=== PATIENT | female | born 1990 | race Caucasian/White ===

== ENCOUNTER 2017-08-28 17:16 | Emergency (ER) | payer SELFPAY ==
[~2017-08-28] VITALS: Ht 157.5 cm; Wt 86.0 kg
[2017-08-28 17:29] VITALS: Ht 157.5 cm; Wt 86.0 kg
[2017-08-28] MEDS ORDERED: KETOROLAC 30 MG INJ IM STA (18:55)
[2017-08-28] MEDS ORDERED: ONDANSETRON (ODT) 4 MG TAB ODT STA (18:55)
[2017-08-28] MEDS ORDERED: HYDROCODONE/APAP (5/325) TAB PO ONE (19:00)
[2017-08-28] MEDS ORDERED: CYCL-319 PO (19:13)
[2017-08-28] MEDS ORDERED: NAPR-260 PO (19:13)
[2017-08-28] MEDS ORDERED: HYDR-906 PO (19:13)
[2017-08-28 20:00] VITALS: BP 121/74; PULSE 87; RESP 18; TEMP 98.8
--- NOTE | 2017-09-02 16:52 | ERD ---
ER Documentation Chief Complaint Chief Complaint LEFT BUTTOCK PAIN STARTING LAST NIGHT HPI Patient is a 27-year-old female presenting to the emergency department with complaints of intermittent, severe, worsening, worse with ambulation left buttock pain which began last night. 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 The pain started after she was sitting for long period of time. She states the pain radiates down her left leg. She denies loss of bowel or bladder function, fevers, chills, inability to ambulate , and other symptoms at this time. ROS All systems reviewed and are negative except as per history of present illness. Medications Home Meds Active Scripts Cyclobenzaprine Hcl* (Cyclobenzaprine Hcl*) 10 Mg Tablet, 10 MG PO TID, #15 TAB Prov:AMY SIM PA-C 08/28/17 Naproxen* (Naprosyn*) 500 Mg Tablet, 500 MG PO BID Y for PAIN AND/OR INFLAMMATION, #30 TAB Prov:AMY SIM PA-C 08/28/17 Hydrocodone/Acetaminophen (Fleming 5-325 Tablet) 1 Each Tablet, 1 TAB PO Q6H Y for PAIN, #10 TAB Prov:AMY SIM PA-C 08/28/17 Allergies Allergies: Coded Allergies: No Known Allergy (Unverified , 08/28/17) PMhx/Soc Medical and Surgical Hx: pt denies Medical Hx, pt denies Surgical Hx Hx Alcohol Use: No Hx Substance Use: No Hx Tobacco Use: No Smoking Status: Never smoker Physical Exam Physical Exam Const: Nontoxic, well-appearing female in no acute distress. Head: Atraumatic Eyes: Normal Conjunctiva ENT: Normal External Ears, Nose and Mouth. Neck: Full range of motion..~ No meningismus. Musculoskeletal: There is tenderness to palpation of the left mid buttock. Back: No midline or flank tenderness and no paraspinal tenderness palpation. Ext: No cyanosis, or edema Neur: Awake and alert Psych: Normal Mood and Affect Results 24 hrs Current Medications Medications (Trade) Dose Ordered Sig/Adam Route PRN Reason Start Time Stop Time Status Last Admin Dose Admin Ketorolac Tromethamine (Toradol) 30 mg ONCE STAT IM 08/28/17 18:55 08/28/17 18:56 DC 10/24/17 19:27 Ondansetron HCl (Zofran Odt) 4 mg ONCE STAT ODT 08/28/17 18:55 08/28/17 18:56 DC 08/28/17 19:27 Acetaminophen/ Hydrocodone Bitart (Fleming (5/325)) 1 tab ONCE ONCE PO 08/28/17 19:00 08/28/17 19:01 DC 08/28/17 19:28 Procedures/MDM 27-year-old female presenting to the emergency department with complaints of left buttock pain. Physical examination is consistent with musculoskeletal pain. 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 Low suspicion for life- threatening pathology. Patient was treated in the department with medication she is feeling improved and she was stable for discharge home for outpatient management and close follow-up with her primary care physician. She is to return immediately for any new or worsening symptoms. Departure Diagnosis: Primary Impression: Acute buttock pain Condition: Fair Patient Instructions: Possible Causes of Low Back or Leg Pain [facility] Usted se layne hecho un examen mdico de control que le indica que no est en dominic condicin que requiera tratamiento urgente en el Departamento de Emergencia. Un estudio ms profundo y el tratamiento de morfin condicin pueden esperar sin ningn riesgo hasta que usted sea atendida/o en el consultorio de morfin mdico o dominic cl rani. Es responsabilidad suya arreglar dominic raissa para el seguimiento del mel. MANEJO DE CONDICIONES NO URGENTES EN EL FUTURO 1) Si usted tiene un mdico de atencin primaria: Usted debera llamar a morfin mdico de atencin primaria antes de venir al departamento de emergencia. Despus de las horas de consultorio, morfin doctor o morfin asociado/a est disponible por telfono. El mdico o enfermero de [employer] en el servicio telefnico puede asesorarle por tristen medio para atender el problema, o mel contrario se puede programar dominic raissa. 2) Si usted no tiene un mdico de atencin primaria: Llame al mdico o clnica de referencia que aparece abajo jeanie las horas de consultorio para hacer dominic raissa para que le vean. CLINICAS: [facility] [phone] [facility] [phone] [facility] [phone] [place] [phone] [address] [place] [phone] [facility] [phone] [address] Additional Instructions: No mas mejor en 2-3 banks, regresar. Mas peor en 24 horas, regresear rapidamente. Ir a doctor primario en 1-2 banks. Usar instrucciones cuando helder medicamento. AMY SIM PA-C Sep 02, 2017 16:52
--- NOTE | 2017-09-02 16:52 | ERD ---
ER Documentation Chief Complaint Chief Complaint LEFT BUTTOCK PAIN STARTING LAST NIGHT HPI Patient is a 27-year-old female presenting to the emergency department with complaints of intermittent, severe, worsening, worse with ambulation left buttock pain which began last night. 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 The pain started after she was sitting for long period of time. She states the pain radiates down her left leg. She denies loss of bowel or bladder function, fevers, chills, inability to ambulate , and other symptoms at this time. ROS All systems reviewed and are negative except as per history of present illness. Medications Home Meds Active Scripts Cyclobenzaprine Hcl* (Cyclobenzaprine Hcl*) 10 Mg Tablet, 10 MG PO TID, #15 TAB Prov:AMY SIM PA-C 08/28/17 Naproxen* (Naprosyn*) 500 Mg Tablet, 500 MG PO BID Y for PAIN AND/OR INFLAMMATION, #30 TAB Prov:AMY SIM PA-C 08/28/17 Hydrocodone/Acetaminophen (Morgan 5-325 Tablet) 1 Each Tablet, 1 TAB PO Q6H Y for PAIN, #10 TAB Prov:AMY SIM PA-C 08/28/17 Allergies Allergies: Coded Allergies: No Known Allergy (Unverified , 08/28/17) PMhx/Soc Medical and Surgical Hx: pt denies Medical Hx, pt denies Surgical Hx Hx Alcohol Use: No Hx Substance Use: No Hx Tobacco Use: No Smoking Status: Never smoker Physical Exam Physical Exam Const: Nontoxic, well-appearing female in no acute distress. Head: Atraumatic Eyes: Normal Conjunctiva ENT: Normal External Ears, Nose and Mouth. Neck: Full range of motion..~ No meningismus. Musculoskeletal: There is tenderness to palpation of the left mid buttock. Back: No midline or flank tenderness and no paraspinal tenderness palpation. Ext: No cyanosis, or edema Neur: Awake and alert Psych: Normal Mood and Affect Results 24 hrs Current Medications Medications (Trade) Dose Ordered Sig/Adam Route PRN Reason Start Time Stop Time Status Last Admin Dose Admin Ketorolac Tromethamine (Toradol) 30 mg ONCE STAT IM 08/28/17 18:55 08/28/17 18:56 DC 10/24/17 19:27 Ondansetron HCl (Zofran Odt) 4 mg ONCE STAT ODT 08/28/17 18:55 08/28/17 18:56 DC 08/28/17 19:27 Acetaminophen/ Hydrocodone Bitart (Morgan (5/325)) 1 tab ONCE ONCE PO 08/28/17 19:00 08/28/17 19:01 DC 08/28/17 19:28 Procedures/MDM 27-year-old female presenting to the emergency department with complaints of left buttock pain. Physical examination is consistent with musculoskeletal pain. 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 Low suspicion for life- threatening pathology. Patient was treated in the department with medication she is feeling improved and she was stable for discharge home for outpatient management and close follow-up with her primary care physician. She is to return immediately for any new or worsening symptoms. Departure Diagnosis: Primary Impression: Acute buttock pain Condition: Fair Patient Instructions: Possible Causes of Low Back or Leg Pain Referrals: [facility] Usted se layne hecho un examen mdico de control que le indica que no est en dominic condicin que requiera tratamiento urgente en el Departamento de Emergencia. Un estudio ms profundo y el tratamiento de morfin condicin pueden esperar sin ningn riesgo hasta que usted sea atendida/o en el consultorio de morfin mdico o dominic cl rani. Es responsabilidad suya arreglar dominic raissa para el seguimiento del mel. MANEJO DE CONDICIONES NO URGENTES EN EL FUTURO 1) Si usted tiene un mdico de atencin primaria: Usted debera llamar a morfin mdico de atencin primaria antes de venir al departamento de emergencia. Despus de las horas de consultorio, morfin doctor o morfin asociado/a est disponible por telfono. El mdico o enfermero de [employer] en el servicio telefnico puede asesorarle por tristen medio para atender el problema, o mel contrario se puede programar dominic raissa. 2) Si usted no tiene un mdico de atencin primaria: Llame al mdico o clnica de referencia que aparece abajo jeanie las horas de consultorio para hacer dominic raissa para que le vean. CLINICAS: [facility] [phone] [facility] [phone] [facility] [phone] [place] [address] [phone] [facility] [facility] [address] [place] [address] [phone] [facility] [phone] [address] Additional Instructions: No mas mejor en 2-3 banks, regresar. Mas peor en 24 horas, regresear rapidamente. Ir a doctor primario en 1-2 banks. Usar instrucciones cuando helder medicamento. AMY SIM PA-C Sep 02, 2017 16:52
--- NOTE | 2017-09-02 16:52 | ERD ---
ER Documentation Chief Complaint Chief Complaint LEFT BUTTOCK PAIN STARTING LAST NIGHT HPI Patient is a 27-year-old female presenting to the emergency department with complaints of intermittent, severe, worsening, worse with ambulation left buttock pain which began last night. 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 The pain started after she was sitting for long period of time. She states the pain radiates down her left leg. She denies loss of bowel or bladder function, fevers, chills, inability to ambulate , and other symptoms at this time. ROS All systems reviewed and are negative except as per history of present illness. Medications Home Meds Active Scripts Cyclobenzaprine Hcl* (Cyclobenzaprine Hcl*) 10 Mg Tablet, 10 MG PO TID, #15 TAB Prov:AMY SIM PA-C 08/28/17 Naproxen* (Naprosyn*) 500 Mg Tablet, 500 MG PO BID Y for PAIN AND/OR INFLAMMATION, #30 TAB Prov:AMY SIM PA-C 08/28/17 Hydrocodone/Acetaminophen (Muir 5-325 Tablet) 1 Each Tablet, 1 TAB PO Q6H Y for PAIN, #10 TAB Prov:AMY SIM PA-C 08/28/17 Allergies Allergies: Coded Allergies: No Known Allergy (Unverified , 08/28/17) PMhx/Soc Medical and Surgical Hx: pt denies Medical Hx, pt denies Surgical Hx Hx Alcohol Use: No Hx Substance Use: No Hx Tobacco Use: No Smoking Status: Never smoker Physical Exam Physical Exam Const: Nontoxic, well-appearing female in no acute distress. Head: Atraumatic Eyes: Normal Conjunctiva ENT: Normal External Ears, Nose and Mouth. Neck: Full range of motion..~ No meningismus. Musculoskeletal: There is tenderness to palpation of the left mid buttock. Back: No midline or flank tenderness and no paraspinal tenderness palpation. Ext: No cyanosis, or edema Neur: Awake and alert Psych: Normal Mood and Affect Results 24 hrs Current Medications Medications (Trade) Dose Ordered Sig/Adam Route PRN Reason Start Time Stop Time Status Last Admin Dose Admin Ketorolac Tromethamine (Toradol) 30 mg ONCE STAT IM 08/28/17 18:55 08/28/17 18:56 DC 10/24/17 19:27 Ondansetron HCl (Zofran Odt) 4 mg ONCE STAT ODT 08/28/17 18:55 08/28/17 18:56 DC 08/28/17 19:27 Acetaminophen/ Hydrocodone Bitart (Muir (5/325)) 1 tab ONCE ONCE PO 08/28/17 19:00 08/28/17 19:01 DC 08/28/17 19:28 Procedures/MDM 27-year-old female presenting to the emergency department with complaints of left buttock pain. Physical examination is consistent with musculoskeletal pain. 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 Low suspicion for life- threatening pathology. Patient was treated in the department with medication she is feeling improved and she was stable for discharge home for outpatient management and close follow-up with her primary care physician. She is to return immediately for any new or worsening symptoms. Departure Diagnosis: Primary Impression: Acute buttock pain Condition: Fair Patient Instructions: Possible Causes of Low Back or Leg Pain Referrals: [facility] Usted se layne hecho un examen mdico de control que le indica que no est en dominic condicin que requiera tratamiento urgente en el Departamento de Emergencia. Un estudio ms profundo y el tratamiento de morfin condicin pueden esperar sin ningn riesgo hasta que usted sea atendida/o en el consultorio de morfin mdico o dominic cl rani. Es responsabilidad suya arreglar dominic raissa para el seguimiento del mel. MANEJO DE CONDICIONES NO URGENTES EN EL FUTURO 1) Si usted tiene un mdico de atencin primaria: Usted debera llamar a morfin mdico de atencin primaria antes de venir al departamento de emergencia. Despus de las horas de consultorio, morfin doctor o morfin asociado/a est disponible por telfono. El mdico o enfermero de [employer] en el servicio telefnico puede asesorarle por tristen medio para atender el problema, o mel contrario se puede programar dominic raissa. 2) Si usted no tiene un mdico de atencin primaria: Llame al mdico o clnica de referencia que aparece abajo jeanie las horas de consultorio para hacer dominic raissa para que le vean. CLINICAS: [facility] [phone] [facility] [phone] [facility] [phone] [place] [address] [phone] [place] [address] [phone] [facility] [phone] [address] Additional Instructions: No mas mejor en 2-3 banks, regresar. Mas peor en 24 horas, regresear rapidamente. Ir a doctor primario en 1-2 banks. Usar instrucciones cuando helder medicamento. AMY SIM PA-C Sep 02, 2017 16:52
== END 2017-08-28 20:05 | disposition home or self-care (01) ==
LOC: FTE 17:16
DX: M54.5 Low back pain (principal)
CPT/HCPCS: 96372; 99284; J1885